=== PATIENT | female | born 1960 | race Two or more races ===

== ENCOUNTER 2021-09-13 14:14 | Emergency (ER) | payer OTHER ==
[2021-09-13 14:28] VITALS: BP 137/96
--- NOTE | 2021-09-13 14:37 | ED Physician Documentation ---
PD HPI OPHTHO - Stated complaint Stated Complaint: L EYE PX,REDNESS - Chief complaint Chief Complaint: Heent - History obtained from History obtained from: Patient - History of Present Illness Timing - onset: How many days ago (3) Timing - duration: Days (3) Timing - details: Gradual onset, Still present Location: Left Quality / character: Burning, Aching Associated symptoms: Redness, Swelling, Tearing, Decreased vision. No: Discharge, FB sensation, Loss of vision, Headache Contributing factors: No: Recent URI, Wears contacts Similar symptoms before: Has not had sx before Recently seen: Clinic (went to [facility] clinic today and they tried to arrange Eye follow up. PT has appt at [facility] at 4 pm today, but they contacted her that they needed referral from [facility] in order to see her. She came to ED at direction of walk in provider instead.) Review of Systems Constitutional: denies: Fever, Chills Nose: denies: Rhinorrhea / runny nose, Congestion Throat: denies: Sore throat Respiratory: denies: Cough GI: reports: Nausea. denies: Vomiting, Diarrhea Skin: denies: Rash, Lesions PD PAST MEDICAL HISTORY - Past Medical History Cardiovascular: None Respiratory: None Endocrine/Autoimmune: None - Present Medications Home Medications: Ambulatory Orders Medication Instructions Recorded Confirmed Polymyxin B/Trimeth Ophth Drop 2 drops LEFTEYE QID 5 Days #10 ml 09/13/21 [Polytrim Ophth Drops] Timolol 0.5% Ophth Drops [Timoptic 2 drops LEFTEYE Q4H 5 Days #5 ml 09/13/21 0.5% Ophth Drops] acetaZOLAMIDE [Diamox] 250 mg PO BID 5 Days #10 tablet 09/13/21 - Allergies Allergies/Adverse Reactions: Allergies Allergy/AdvReac Type Severity Reaction Status Date / Time No Known Drug Allergies Allergy Verified 09/13/21 14:28 PD ED PE NORMAL - Vitals Vital signs reviewed: Yes - General General: Alert and oriented X 3, Well developed/nourished - HEENT HEENT: PERRL, EOMI PD ED PE EXPANDED - Eyes Eyes: Injected conj/sclera (with redness and conjunctival edema left side. pupil reactive but slightly sluggish. Anterior chamber is okay. ), Normal fundi (less visualized due to constricted pupils. ), Other (IOP WIth Tonopen was 29-32 on 3 separate readings.). No: Ant chamber cells/flare Results - Vitals Vitals: Vital Signs - 24 hr 09/13/21 14:26 Temperature 36.4 C L Heart Rate 74 Respiratory 16 Rate Blood Pressure 137/96 H O2 Saturation 95 Oxygen O2 Source Room air PD MEDICAL DECISION MAKING - ED course Complexity details: considered differential, d/w patient, d/w technical assistance consultant (provider at [facility] - they can see patient today/tomorrow but would be payment self pay if not referral. I tried to talk with primary care at [facility] But they have left already (3:45 pm) but I did get to talk with Kitchen Designer there, who can see pt tomorrow and try to expedite f/u.) ED course: I did talk with Opthalmology at [facility], who guided treatment of DIAmox and timolol. HE felt this was sufficient for now given the moderately elevated pressures of 29-32. Departure - Departure Disposition: 01 Home, Self Care Clinical Impression: Acute left eye pain, Acute glaucoma of left eye Condition: Stable Record reviewed to determine appropriate education?: Yes Instructions: ED Glaucoma Narrow Angle Acute Prescriptions: acetaZOLAMIDE [Diamox] 250 mg PO BID 5 Days #10 tablet Polymyxin B/Trimeth Ophth Drop [Polytrim Ophth Drops] 2 drops LEFTEYE QID 5 Days #10 ml Timolol 0.5% Ophth Drops [Timoptic 0.5% Ophth Drops] 2 drops LEFTEYE Q4H 5 Days #5 ml Comments: Appears to be an increased pressure in the left eye called acute glaucoma. We treat it with medications to decrease the fluid amount in the eye and also the pressure in the eye with both oral and topical medications. It does not look as much like an infection though we can go with some antibiotic drops to just in case. I talked with the mathematical engineering technician at [facility]. They are willing and happy to see you. You would just need to pay for the appointment and then get reimbursed from your insurance if you did not have a referral ahead. [facility] referral but they were out of the office at this time. Contact your primary care tomorrow to see if you can get an expedited referral to see the wildland fire operations specialist. Alternatively you can be seen in the eye clinic by the education consultant and base tomorrow and I did talk with the provider there. They can recheck your pressures and also likely expedite a referral to wildland fire operations specialist as well. For tonight the wildland fire operations specialist I talked with directed that we prescribe you timolol eyedrops to use every 3-4 hours on the left eye and also acetazolamide oral tablet twice daily. We can also add antibiotic eyedrops. I transmitted those prescriptions to [facility] pharmacy in [place]. Discharge Date/Time: 09/13/21 16:16
[2021-09-13] MEDS ORDERED: TIMOLOL 0.5% OPHTH DROPS LEFTEYE STA (15:09)
[2021-09-13] MEDS ORDERED: acetaZOLAMIDE 250 MG TABLET PO STA (15:31)
== END 2021-09-13 16:16 | disposition home or self-care (01) ==
LOC: ED 14:14
DX: H40.9 Unspecified glaucoma (principal)
CPT/HCPCS: 99282; 99283; A9270